=== PATIENT | male | born 1965 | race Caucasian/White ===

== ENCOUNTER 2017-10-22 11:44 | Emergency (ER) | payer MEDICARE, MEDICAID ==
[~2017-10-22] VITALS: Ht 180.3 cm; Wt 61.4 kg
[~2017-10-22 11:44] MED LIST: ABILIFY5 MG; ACIPHEX20 MG PO; ADVAIR DISKUS1 DS1 IH; ALBUTEROL0.09 MG/A1 IH; ALLEGRA60 MG PO; ALPRAZOLAM; AMARYL 2MG T2 MG/TAB PO; AMOXICILLIN875 MG PO; ASPIR-LOW81 MG PO; ASPIRIN E.C. 8181 MG PO; ATRIPLA 600 MG-1 TAB PO; ATRIPLA PO; CENTRUM1 TAB PO; CIPRO 500MG TA500 MG PO; CLONAZEPAM0.5 MG PO; CLOPIDOGREL PO; DEXILANT30 MG PO; DILAUDID 2MG TAB2 MG PO; FISH OIL CONC1000 MG PO; FLEXERIL10 MG PO; FLOMAX PO; FLOMAX0.4 MG PO; GLYBURIDE MICRON3 MG PO; JANUVIA25 MG PO; KLONOPIN1 MG PO; LEXAPRO 10MG10 MG PO; LISINOPRIL PO; LORTAB 5/500 501 TAB PO; LOW DOSE ASPIRI81 MG PO; METHADONE H10 MG/TAB PO; METHADONE5 MG PO; METOPROLOL SUCC25 MG PO; NEURONTIN PO; NIASPAN750 MG PO; NITROGLYCER0.2 MG/H1 TD; PERCOCET 325 MG1 TA2 PO; PERCOCET 5/321 UDTAB PO; PREDNISONE20 MG PO; PROVENTIL0.09 MG/A1 IH; QUESTRAN4 GM/9 GM PO; REGLAN 10MG10 MG/TAB PO; REQUIP 0.5MG0.5 MG PO; REQUIP5 MG PO; RESTORIL15 MG PO; RT ADVAIR 228 DISKUS IH; SIMVASTATIN40 MG PO; TOPROL XL100 MG PO; TRICOR145 MG PO; TRILIPIX45 MG PO; TRIUMEQ PO; VANCOCIN H125 MG/CAP PO; VANCOMYCIN PO; VICODIN 5/5001 UDTAB PO; VYTORIN PO; ZITHROMAX 250M250 MG PO; ZOFRAN 4MG T4 MG/TAB PO; ZOFRAN8 MG PO; [UNRECOGNIZED DRUG - OTHER]; [UNRECOGNIZED DRUG - OTHER] PO; [UNRECOGNIZED DRUG - OTHER] PO; dexilant PO
[2017-10-22 11:48] VITALS: BP 103/54; TEMP 98
[2017-10-22] MEDS ORDERED: ROXICODONE 55 MG/TAB PO (12:56)
[2017-10-22 13:14] VITALS: PULSE 62
== END 2017-10-22 13:14 | disposition home or self-care (01) ==
LOC: COL.ER 11:44
DX: S22.41XA Multiple fractures of ribs, right side, initial encounter for closed fracture (principal); E11.9 Type 2 diabetes mellitus without complications; Z21 Asymptomatic human immunodeficiency virus [HIV] infection status; Z79.82 Long term (current) use of aspirin; W01.198A Fall on same level from slipping, tripping and stumbling with subsequent striking against other object, initial encounter

== ENCOUNTER → 2019-06-25 | Outpatient (CLI) | payer MEDICARE, MEDICAID ==
[~2019-06-25] VITALS: Ht 180.3 cm; Wt 79.0 kg
[~2019-06-25] MED LIST changes: +ASPI325T6 PO; +BIKTARVY 50-201 EACH PO; +BRINTELLIX10 PO; -LOW DOSE ASPIRI81 MG PO; +ROXICODONE 55 MG/TAB PO
[2019-06-25 10:44] VITALS: BP 135/93; PULSE 101
[2019-06-25 12:01] VITALS: BP 150/85; PULSE 131
[2019-06-25 12:03] VITALS: BP 155/85; PULSE 126
[2019-06-25 12:04] VITALS: BP 145/90; PULSE 99
== END ==
LOC: COL.CARD 06-24 10:45
DX: I25.10 Atherosclerotic heart disease of native coronary artery without angina pectoris (principal); E78.00 Pure hypercholesterolemia, unspecified; E11.9 Type 2 diabetes mellitus without complications; Z95.5 Presence of coronary angioplasty implant and graft
CPT/HCPCS: A9500; J2785

== ENCOUNTER 2019-10-15 18:31 | Observation (INO) | payer MEDICARE, MEDICAID ==
[~2019-10-15] VITALS: Ht 180.3 cm; Wt 80.0 kg
[2019-10-15 20:45] LABS: HEMOGLOBIN 11.9 g/dl (13.5-18.0); MEAN CELL VOLUME 94 fl (80.0-100.0); MEAN CORPUSCULAR HEMOGLOBIN 32 pg (27.0-31.0); MEAN CORPUSCULAR HGB CONC 34 g/dl (33.0-37.0); MEAN PLATELET VOLUME 10.8 fl (7.4-10.4); PLATELET COUNT 194 K/mm3 (130-400); RED BLOOD COUNT 3.72 M/mm3 (4.20-5.60)
[2019-10-15 20:49] LABS: HEMATOCRIT 35.1 % (42.0-52.0)
[2019-10-15 20:53] LABS: PROTHROMBIN TIME 11.1 SECONDS (9.7-12.8)
[2019-10-15 20:56] LABS: PARTIAL THROMBOPLASTIN TIME 31.4 SECONDS (26.0-37.0)
[2019-10-15 21:08] VITALS: BP 129/68; PULSE 79; TEMP 97.6
[2019-10-15 21:48] LABS: ANION GAP 9 mmol/L (7-16); BLOOD UREA NITROGEN 23 mg/dL (9-20); CARBON DIOXIDE 25 mmol/L (22-30); CHLORIDE 103 mmol/L (98-107); CREATININE, serum 0.85 (0.66-1.25); GLUCOSE 167 mg/dL (74-106); SODIUM 136 mmol/L (137-145)
[2019-10-15 22:00] LABS: TROPONIN-I < 0.012 ng/mL (0.000-0.035)
[2019-10-16] VITALS (14 sets, daily range): BP systolic 94–142; BP diastolic 52–77; PULSE 56–78; TEMP 97.9–98.6
[2019-10-16] MEDS ORDERED: ISORDIL TITRADO30 MG PO (00:15)
[2019-10-16] MEDS ORDERED: BRINTELLIX10 (00:16)
[2019-10-16] MEDS ORDERED: PLAVIX 75MG TAB75 MG PO (00:18)
[2019-10-16] MEDS ORDERED: LIPITOR 80MG80 MG PO (00:21)
[2019-10-16] MEDS ORDERED: BIKTARVY 50-201 EACH PO (00:23)
[2019-10-16] MEDS ORDERED: PRINIVIL10 MG PO (00:25)
--- NOTE | 2019-10-16 00:50 | NUR ---
patient home medications were sent with house sup to be placed in the pharmacy.
--- NOTE | 2019-10-16 04:11 | NUR ---
PATIENT WAS ADMITTED FROM THE PCP OFFICE. PATIENT HAS AN IV TO THE FIRGHT FOREARM THAT IS CLEAN, DRY, INTACT AND FLUSHES GREAT. PATIENT IS AN EVERYDAY SMOKER WITH A NICODERM PATCH TO HIS LEFT UPPER ARM. PATIENT IS DIABETES DIET CONTROLLED. PATIENT IS ON TELEY RUNNING NORMAL SINUS. PATIENT IS INDEPENDENT IN HIS ROOM. MEDICATIONS WERE SENT DOWN TO PHARMACY AFTER MED REC WAS COMPLETED. PATIENT IS NPO BECAUSE HE IS SCHEDULED FOR A HEART CATH THIS MORNING.
--- NOTE | 2019-10-16 09:56 | NUR ---
ADAM met with the patient to complete initial intake. The patient lives in [place] with his , Glynn. The patient denies DME use and is independent with ADLs. The patient's PCP is Dr. Sexton and patient receives medications from [facility] with no difficulties. The patient does not have advanced directives in the EMR but the patient was interested in a DPOA-HC form. Form provided. The patient plans to return home at discharge. There are no additional needs at this time.
--- NOTE | 2019-10-16 10:15 | NUR ---
JIMENA NOTE; PT AOX4. STEADY INDEPENDENT AMBULATION. DENIES PAIN. NPO SINCE MIDNIGHT. AWAITING ORDERS BUT EXPECTED TO GO TO HEART CATH BETWEEN 10A AND 2P PER SCHEDULE.
--- NOTE | 2019-10-16 16:12 | NUR ---
SEE MERGE FOR ALL MEDICATION ADMIN TIMES AND INTRA AND POSTSEDATION ASSESSMENTS
--- NOTE | 2019-10-16 17:43 | NUR ---
PT RETURNED FROM HEART CATH PROCEDURE @ 8125. LT GROIN PUNCTURE SITE NOTED WITH ANGIOSEAL. DRY. ON BEDREST. DENIES PAIN.
== END 2019-10-16 21:57 | disposition home or self-care (01) ==
LOC: MEDICAL 18:31
PROVIDERS: ADMIT Internal Medicine Interventional Cardiology
DX: I25.118 Atherosclerotic heart disease of native coronary artery with other forms of angina pectoris (principal); I10 Essential (primary) hypertension; B20 Human immunodeficiency virus [HIV] disease; E78.5 Hyperlipidemia, unspecified; Z79.82 Long term (current) use of aspirin; Z79.899 Other long term (current) drug therapy; F17.210 Nicotine dependence, cigarettes, uncomplicated; Z88.1 Allergy status to other antibiotic agents
CPT/HCPCS: G0378; J1644; J2250; J3010

== ENCOUNTER → 2020-06-07 | Outpatient (CLI) | payer MEDICARE, MEDICAID ==
--- NOTE | 2020-06-03 13:29 | NUR ---
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 GAVE INSTRUCTIONS FOR PROCEDURE AND TO TAKE BP MEDS THAT MORNING
[~2020-06-07] VITALS: Ht 180.3 cm; Wt 86.1 kg
[2020-06-07] VITALS (11 sets, daily range): BP systolic 132–164; BP diastolic 51–96; PULSE 71–88
[~2020-06-07] MED LIST changes: +BRINTELLIX10; +ISORDIL TITRADO30 MG PO; +LIPITOR 80MG80 MG PO; +PLAVIX 75MG TAB75 MG PO; +PRINIVIL10 MG PO
[2020-06-07 10:23] LABS: PROTHROMBIN TIME 11.5 SECONDS (9.7-12.8)
--- NOTE | 2020-06-07 11:10 | NUR ---
PT AMBULATED TO CT WITH STAFF. PT PLACED ON TABLE AND MONITORING EEQUIPMENT PLACED. VSS.
--- NOTE | 2020-06-07 11:15 | NUR ---
DR GARCIA HERE. SPECIMENS TAKEN
== END ==
LOC: COL.RAD 09:38
PROVIDERS: Family Medicine
DX: K75.81 Nonalcoholic steatohepatitis (NASH) (principal)

== ENCOUNTER 2021-06-27 09:36 | Emergency (ER) | payer MEDICARE, MEDICAID ==
[~2021-06-27] VITALS: Ht 180.3 cm; Wt 86.4 kg
[2021-06-27 09:52] VITALS: TEMP 99.1
[2021-06-27] MEDS ORDERED: PERCOCET 325 MG1 TA2 PO (11:19)
[2021-06-27 11:46] VITALS: BP 142/89; PULSE 96
== END 2021-06-27 11:46 | disposition home or self-care (01) ==
LOC: COL.ER 09:36
DX: S52.501A Unspecified fracture of the lower end of right radius, initial encounter for closed fracture (principal); W01.0XXA Fall on same level from slipping, tripping and stumbling without subsequent striking against object, initial encounter; Y92.481 Parking lot as the place of occurrence of the external cause

== ENCOUNTER → 2021-11-03 | Outpatient (CLI) | payer MEDICARE, MEDICAID | LOC: COL.RAD 09:26 | DX: K31.9 Disease of stomach and duodenum, unspecified (principal) ==